=== PATIENT | male | born 1990 | race Caucasian/White ===

== ENCOUNTER 2024-07-31 07:45 | Emergency (ER) | payer OTHER, SELFPAY ==
[2024-07-31 07:47] VITALS: BP 125/51
[2024-07-31 08:33] LABS: COVID-19 Antigen Negative (Negative)
--- NOTE | 2024-07-31 08:34 | ED.GENMED ---
History of Present Illness
General
Chief Complaint: Fever
Source: patient and spouse
Exam Limitations: none
Time Seen by Provider: 07/31/24 08:13
Nursing documentation reviewed up to this point in time: agreed with
History of Present Illness
History of Present Illness:
34-year-old male presents emergency department complaining of cough, sore throat and fevers for the past 5 days. He went to urgent care on Tuesday and tested negative for strep, flu and COVID. He has had fevers as high as 103.
Past History
Past History
ED Past Medical History: None
ED Past Surgical History: None
Social History
Tobacco: Non-smoker
Alcohol: None
Drug: None
Personal:
Living: with family
Employment: Employed
Review of Systems
Review of Systems
Allergies reviewed?: Yes
Constitutional: Reports fever and chills
EENT: Reports sore throat
Respiratory: Reports cough
Cardiac: Reports no symptoms
ABD/GI: Reports no symptoms
: Reports no symptoms
Musculoskeletal: Reports muscle pain
Skin: Reports no symptoms
Neurological: Reports no symptoms
Endocrine: Reports no symptoms
Hematologic/Lymphatic: Reports no symptoms
Psychiatric: Reports no symptoms
Phy Exam
Physical Exam
Physical Exam:
Physical Exam
General: no apparent distress, temperature 100.4
Neck: supple. no meningeal signs. normal posterior pharynx
Heart: s1/s2 regular rate and rhythm, no murmur. equal radial
pulses.
HEENT: Pupils equal round reactive to light, EOMI
Lungs: no acute respiratory distress. clear bilaterally, cough
Abdomen: normal bowel sounds. not tender. no CVAT
Neuro: alert and oriented. no focal neurological deficits cranial nerves II through XII intact
Skin: no rash
Psychiatric: well kept. interactive and cooperative
Extremities: no edema. no calf tenderness. negative homans. good distal pulses
Course
Orders/Labs/Results
Orders:
Orders
07/31/24 07:49
Chest [CR Chest - 2 Views ] Urgent
Comment:
Reason For Exam: cough, fever
07/31/24 07:53
COVID-19 Antigen Urgent
Source: Nasal Swab
INF RAPID [Influenza A+B Rapid Molecular] Urgent
JAVAD Source: Nasal Swab
Specimen Description:
07/31/24 08:33
Ketorolac [Toradol] 15 mg IM NOW STA
Vital Signs
Initial and Last Documented VS:
Initial Vital Signs
Temp Pulse Resp BP Pulse Ox
100.4 F H 105 20 125/51 97
07/31/24 07:47 07/31/24 07:47 07/31/24 07:47 07/31/24 07:47 07/31/24 07:47
Last Documented Vital Signs
Temp Pulse Resp BP Pulse Ox
100.4 F H 105 20 125/51 97
07/31/24 07:47 07/31/24 07:47 07/31/24 08:00 07/31/24 07:47 07/31/24 07:47
MDM/Problems Addressed
Differential Diagnosis Includes:
Pneumonia, influenza, COVID
MDM/Problems Addressed:
34-year-old male with influenza A. Will start Tamiflu, given patient had negative test 2 days ago. Chest x-ray no acute findings. Lungs clear. No signs of distress. Stable for discharge.
*Radiology
Radiology exam reviewed: preliminary read by ED provider (Chest x-ray no acute findings)
*Pulse Oximetry
Patient hypoxic: no
*Critical Care Note
Total Time (30-74mins, 75-104mins- exclusive of procedures): Not Applicable
Patient Management
Social determinants of health affecting care: Living situation and Strong social support
Escalation/DeEscalation of care consider admission/obs:
Admit not indicated
ED Attending Note
-
Portions of this chart may have been created with voice recognition software.� Occasional wrong word or��sound alike� substitutions may have occurred due to the inherent limitations of voice recognition software.
Discharge Plan
Departure
Patient Disposition: Home (Routine Discharge)
Date of Disposition: 07/31/24
Time of Disposition: 08:38
Patient with high blood pressure during this ER visit?: Yes
Condition: Good
Discharge Problem:
Influenza A
Instructions: Fever, Adult (DC), Flu in adults - ED discharge instructions, BLOOD PRESSURE
Prescriptions:
New
oseltamivir [Tamiflu] 75 mg capsule
75 mg PO BID Qty: 10 0RF
Activity Restrictions/Additional Instructions:
Take ibuprofen 600 mg every 6 hours as needed for fever or body ache. You may use Tylenol 500 mg every 4 hours as needed for fever or body aches. Do not exceed 4000 mg of tylenol in 1 day. Return for any concerns.
Interventions
Interventions:
*Risk Screen - Suicide Last Done: 07/31/24 07:47
*General Assessment Last Done: 07/31/24 07:47
*Neglect/Abuse Screening Last Done: 07/31/24 08:27
ED- Fall Risk Assessment Last Done: 07/31/24 08:25
*ED COVID-19 Vaccine History Last Done: 07/31/24 07:47
ED- Neurological Assessment Last Done: 07/31/24 08:25
ED-Skin Assessment Last Done: 07/31/24 08:25
Discharge Date and Time
Print Language: CITIZEN OF [place]
[2024-07-31] MEDS: TORADOL 15 MG IM (08:45)
== END 2024-07-31 09:07 | disposition home or self-care (01) ==
LOC: EMR 07:45
PROVIDERS: Emergency Medicine; EMERGENCY PHYSICIAN Emergency Medicine
DX: J10.1 Influenza due to other identified influenza virus with other respiratory manifestations (principal); R03.0 Elevated blood-pressure reading, without diagnosis of hypertension; Z11.52 Encounter for screening for COVID-19
CPT/HCPCS: 99284; 96372; 71046; 87502; 87811